=== PATIENT | female | born 1930 | race Caucasian/White ===

== ENCOUNTER 2018-01-23 14:21 | Inpatient (IN) | payer MEDICARE, MEDICAID ==
[2018-01-23] MEDS ORDERED: cefTRIAXone 1,000 MG in Sodium Chloride 0.9% 50 ML IV SCH (14:45)
[2018-01-23] MEDS: cefTRIAXone 1,000 MG VIAL IV SCH (16:23)
[2018-01-23] MEDS: Sodium Chloride 0.9% 10 ML Syringe FLUSH PRN ×2 (16:24→19:17)
[2018-01-23] MEDS ORDERED: Albuterol/Ipratropium 3.0-0.5 MG/3 ML Neb Soln INH PRN (17:29)
[2018-01-23] MEDS ORDERED: Bisacodyl 10 MG Supp RECTAL PRN (17:29)
[2018-01-23] MEDS ORDERED: Azithromycin 500 MG in Sodium Chloride 0.9% 250 ML IV SCH (18:00)
[2018-01-23] MEDS: Albuterol/Ipratropium 3.0-0.5 MG/3 ML Neb Soln INH SCH (20:37)
[2018-01-23] MEDS: Melatonin 3 MG Tab PO SCH (20:37)
[2018-01-24] MEDS: Albuterol/Ipratropium 3.0-0.5 MG/3 ML Neb Soln INH SCH ×3 (07:06→20:00)
[2018-01-24] MEDS: Citalopram 10 MG Tab PO SCH (09:06)
--- NOTE | 2018-01-24 13:41 | PN ---
DATE SEEN: 01/24/2018 SUBJECTIVE: Litzy Grullon is an 87-year-old female, in acute respiratory distress, evidence of bilateral pneumonia. Better today. Supplemental O2, still required. Blood cultures were negative. Laboratory studies reviewed. OBJECTIVE: VITAL SIGNS: 36.6, 72, 103/61, respirations 28, and O2 saturation 94% on 1 L. GENERAL: Soft spoken. Conversation limited. NECK: Benign. Thyroid small. CHEST: Better air exchange throughout all lung champion. HEART: Distant heart sounds. Ectopy present. ABDOMEN: Benign. LABORATORY DATA: Blood cultures negative. ASSESSMENT: Bilateral pneumonia. PLAN: Continue IV azithromycin, IV Rocephin, complementary care and well being. Expect a short-term hospital stay. /[id number] VIVEK/SHAWNA
--- NOTE | 2018-01-24 13:41 | HP ---
ADMISSION DATE: 01/23/2018 REASON FOR VISIT: Acute respiratory difficulty, complicated cough, low-grade fever. HISTORY OF PRESENT ILLNESS: Litzy Grullon is a delightful 87-year-old female, who resides at [facility] in [place], [place]. She presented today, was seen by Rocio Peralta at [facility]. She presents with 3-day history of complicated cough, increasing respiratory difficulty, low-grade fever, reduced oxygen level, and lethargy. History of recurrent pneumonias in the past. She was seen in the clinic, respiratory distress was present. Radiographs were not performed, but given situation and circumstances, admission to the hospital is indicated. DAILY MEDICATIONS: Please see med recon list. PAST MEDICAL HISTORY: Significant for multiple surgical procedures including previous hysterectomy, appendectomy, cholecystectomy, bilateral oophorectomy, and previous paul hole for intracranial bleed. Chronic illnesses include reactive airway disease with COPD, mood disorder, and chronic constipation. SOCIAL HISTORY: Resident at [facility], been a long-term resident. Former smoker, quit remotely. Nil alcohol consumption. No illicit drug use. FAMILY HISTORY: Not obtainable. REVIEW OF SYSTEMS: Please see HPI, limited history otherwise. PHYSICAL EXAMINATION: VITAL SIGNS: Stable. Temperature 37.1, pulse 76, blood pressure 110/60, respiratory rate 22, saturation 92% on 2 L. GENERAL: Elderly, cooperative, conversant, very soft spoken, hard of hearing. Funduscopic benign. Conjunctivae clear. Bright tympanic membranes. Clear nasal discharge. Mouth and oropharynx clear. Tongue midline. Dry mouth. A paul hole right frontoparietal area present. NECK: Benign. Thyroid is small. CHEST: Diffuse wheezing, coarse rhonchi at both bases. HEART: Distant heart sounds with occasional ectopy. ABDOMEN: Benign. No hepatosplenomegaly. Well-healed surgical scars. GENITOURINARY: Deferred. RECTAL: Deferred. EXTREMITIES: Well perfused. Venous stasis changes. LABORATORY STUDIES: Pending. ASSESSMENT: Suspect pneumonia. PLAN: Antibiotic therapy, cooperative care and well-being, respiratory therapy, intervention and care as appropriate, proceed accordingly. /[id number] VIVEK/SHAWNA ATKINSON
[2018-01-24] MEDS ORDERED: Albuterol/Ipratropium 3.0-0.5 MG/3 ML Neb Soln NEB PRN (15:50)
[2018-01-24] MEDS ORDERED: Furosemide 20 MG/2 ML VIAL IVPUSH ONE (15:50)
[2018-01-24] MEDS: Sodium Chloride 0.9% 10 ML Syringe FLUSH PRN (15:51)
[2018-01-24] MEDS: cefTRIAXone 1,000 MG VIAL IV SCH (15:51)
[2018-01-24] MEDS: Melatonin 3 MG Tab PO SCH (20:00)
[2018-01-25] MEDS: Albuterol/Ipratropium 3.0-0.5 MG/3 ML Neb Soln INH SCH ×3 (07:15→20:30)
[2018-01-25] MEDS: Citalopram 10 MG Tab PO SCH (08:21)
--- NOTE | 2018-01-25 08:53 | CR ---
INDICATION: Cough, pneumonia, fever. CHEST: AP and lateral views of the chest with two lateral views were obtained 01/24/2018 and compared with 10/24/2015 and 10/20/2015. The current chest is rotated to the right. The heart size is difficult to evaluate, but appears to be grossly within normal limits. Mild enlargement cannot be excluded with the poor inspiration obtained. The aorta is tortuous and calcified in the arch area. Diminished bone density suggests the possibility of osteoporosis - correlate clinically. Heavy markings are noted at the posterior lung bases with blunting of the posterior sulci and minimally of the costophrenic angles. This appearance is similar to previous examinations and likely represents fibrosis. The possibility of recurrent bibasilar pneumonia and pleuritis, however, cannot be excluded. Somewhat heavy markings are also noted in the right mid lung field and were, for the most part, present previously, again most likely fibrotic in nature. Somewhat flattened diaphragm leaves, prominent AP diameter, and hyperaeration all suggest COPD additionally. IMPRESSION: 1. Probable pulmonary fibrosis, but cannot exclude bibasilar patchy pneumonia and pleuritis, as well as right mid lung field pneumonia. 2. ASHD, probable mild cardiomegaly. 3. COPD. 4. Osteoporosis. MTDD
[2018-01-25] MEDS: cefTRIAXone 1,000 MG VIAL IV SCH (16:52)
[2018-01-25] MEDS: Sodium Chloride 0.9% 10 ML Syringe FLUSH PRN (16:59)
[2018-01-25] MEDS: Azithromycin 500 MG in Sodium Chloride 0.9% 250 ML IV SCH (17:55)
--- NOTE | 2018-01-25 19:39 | PCM.PN ---
- General Info Date of Service: 01/25/18 - Patient Data Vitals - Most Recent: Last Vital Signs Temp 97.9 F 01/25/18 16:00 Pulse 68 01/25/18 16:00 Resp 20 01/25/18 16:00 BP 110/65 01/25/18 16:00 Pulse Ox 93 L 01/25/18 16:00 Weight - Most Recent: 79.288 kg I&O - Last 24 Hours: Intake & Output 01/25/18 01/25/18 01/25/18 06:59 14:59 22:59 Intake Total 50 Output Total 0 Balance 50 Med Orders - Current: Current Medications Albuterol/Ipratropium (Duoneb 3.0-0.5 Mg/3 Ml) 3 ml INH TIDRT [facility] Last Admin: 01/25/18 14:40 Dose: 3 ml Albuterol/Ipratropium (Duoneb 3.0-0.5 Mg/3 Ml) 3 ml NEB Q4H PRN PRN Reason: Dyspnea Bisacodyl (Dulcolax) 10 mg RECTAL DAILY PRN PRN Reason: Constipation Ceftriaxone Sodium (Rocephin) 1,000 mg IV Q24H [facility] Last Admin: 01/25/18 16:52 Dose: 1,000 mg Citalopram Hydrobromide (Celexa) 10 mg PO DAILY [facility] Last Admin: 01/25/18 08:21 Dose: 10 mg Azithromycin 500 mg/ Sodium (Chloride) 250 mls @ 250 mls/hr IV Q24H [facility] Last Admin: 01/25/18 17:55 Dose: 250 mls/hr Melatonin (Melatonin) 3 mg PO BEDTIME [facility] Last Admin: 01/24/18 20:00 Dose: 3 mg Sodium Chloride (Saline Flush) 10 ml FLUSH ASDIRECTED PRN PRN Reason: Keep Vein Open Last Admin: 01/25/18 16:59 Dose: 10 ml Discontinued Medications Albuterol/Ipratropium (Duoneb 3.0-0.5 Mg/3 Ml) 3 ml INH QID PRN PRN Reason: shortness of breath/cough Furosemide (Lasix) 20 mg IVPUSH ONETIME ONE Stop: 01/24/18 15:51 Last Admin: 01/24/18 17:28 Dose: 20 mg Azithromycin 500 mg/ Sodium (Chloride) 250 mls @ 250 mls/hr IV Q24H [facility] Last Admin: 01/23/18 17:52 Dose: 250 mls/hr Azithromycin 500 mg/ Sodium (Chloride) 250 mls @ 250 mls/hr IV Q24H [facility] Last Admin: 01/24/18 18:25 Dose: 250 mls/hr - Problem List & Annotations (1) CAP (community acquired pneumonia) SNOMED Code(s): 014041273 Code(s): J18.9 - PNEUMONIA, UNSPECIFIED ORGANISM Status: Acute Current Visit: Yes (2) COPD with acute exacerbation SNOMED Code(s): 192963838 Code(s): J44.1 - CHRONIC OBSTRUCTIVE PULMONARY DISEASE W (ACUTE) EXACERBATION Status: Acute Current Visit: Yes (3) Palliative care status SNOMED Code(s): 090436213 Code(s): Z51.5 - ENCOUNTER FOR PALLIATIVE CARE Status: Acute Current Visit: Yes (4) DNR (do not resuscitate) Status: Acute Current Visit: Yes (5) DNI (do not intubate) SNOMED Code(s): 295435232 Code(s): Z78.9 - OTHER SPECIFIED HEALTH STATUS Status: Acute Current Visit: Yes (6) Hearing impairment SNOMED Code(s): 40389387 Code(s): H91.90 - UNSPECIFIED HEARING LOSS, UNSPECIFIED EAR Status: Chronic Current Visit: Yes - Problem List Review Problem List Initiated/Reviewed/Updated: Yes - My Orders Last 24 Hours: My Active Orders 01/25/18 19:43 Vital Signs [RC] Q6H 01/25/18 19:44 Weight Daily [Height and Weight] [RC] DAILY 01/25/18 19:45 Enoxaparin [Lovenox] 30 mg SUBCUT Q24H
[2018-01-25] MEDS ORDERED: Enoxaparin 30 MG/0.3 ML Syringe SUBCUT SCH (19:45)
[2018-01-25] MEDS: Melatonin 3 MG Tab PO SCH (20:30)
[2018-01-26] MEDS: Albuterol/Ipratropium 3.0-0.5 MG/3 ML Neb Soln INH SCH ×3 (07:23→20:37)
[2018-01-26] MEDS: Citalopram 10 MG Tab PO SCH (08:15)
[2018-01-26] MEDS ORDERED: Sodium Chloride 0.9% 1,000 ML IV SCH ×4 (15:30→19:30)
--- NOTE | 2018-01-26 15:45 | PCM.PN ---
- General Info Date of Service: 01/26/18 - Patient Data Vitals - Most Recent: Last Vital Signs Temp 97.6 F 01/26/18 14:00 Pulse 73 01/26/18 14:18 Resp 20 01/26/18 14:00 BP 118/74 01/26/18 14:00 Pulse Ox 94 L 01/26/18 14:18 Weight - Most Recent: 80.853 kg [place] Results Last 24 Hours: Microbiology 01/23/18 15:40 Aerobic Blood Culture - Preliminary Blood - Venous NO GROWTH AFTER 3 DAYS Anaerobic Blood Culture - Preliminary NO GROWTH AFTER 3 DAYS Med Orders - Current: Current Medications Albuterol/Ipratropium (Duoneb 3.0-0.5 Mg/3 Ml) 3 ml INH TIDRT [facility] Last Admin: 01/26/18 14:16 Dose: 3 ml Albuterol/Ipratropium (Duoneb 3.0-0.5 Mg/3 Ml) 3 ml NEB Q4H PRN PRN Reason: Dyspnea Bisacodyl (Dulcolax) 10 mg RECTAL DAILY PRN PRN Reason: Constipation Ceftriaxone Sodium (Rocephin) 1,000 mg IV Q24H [facility] Last Admin: 01/25/18 16:52 Dose: 1,000 mg Citalopram Hydrobromide (Celexa) 10 mg PO DAILY [facility] Last Admin: 01/26/18 08:15 Dose: 10 mg Azithromycin 500 mg/ Sodium (Chloride) 250 mls @ 250 mls/hr IV Q24H [facility] Last Admin: 01/25/18 17:55 Dose: 250 mls/hr Sodium Chloride (Normal Saline) 1,000 mls @ 125 mls/hr IV ASDIRECTED [facility]ONATHAN Sodium Chloride (Normal Saline) 1,000 mls @ 250 mls/hr IV ASDIRECTED [facility] Stop: 01/27/18 19:30 Melatonin (Melatonin) 3 mg PO BEDTIME [facility] Last Admin: 01/25/18 20:30 Dose: 3 mg Sodium Chloride (Saline Flush) 10 ml FLUSH ASDIRECTED PRN PRN Reason: Keep Vein Open Last Admin: 01/25/18 16:59 Dose: 10 ml Discontinued Medications Albuterol/Ipratropium (Duoneb 3.0-0.5 Mg/3 Ml) 3 ml INH QID PRN PRN Reason: shortness of breath/cough Enoxaparin Sodium (Lovenox) 30 mg SUBCUT Q24H [facility] Furosemide (Lasix) 20 mg IVPUSH ONETIME ONE Stop: 01/24/18 15:51 Last Admin: 01/24/18 17:28 Dose: 20 mg Azithromycin 500 mg/ Sodium (Chloride) 250 mls @ 250 mls/hr IV Q24H [facility] Last Admin: 01/23/18 17:52 Dose: 250 mls/hr Azithromycin 500 mg/ Sodium (Chloride) 250 mls @ 250 mls/hr IV Q24H [facility] Last Admin: 01/24/18 18:25 Dose: 250 mls/hr Sodium Chloride (Normal Saline) 1,000 mls @ 250 mls/hr IV ASDIRECTED [facility] Stop: 01/26/18 19:30 - Problem List & Annotations (1) CAP (community acquired pneumonia) SNOMED Code(s): 428906212 Code(s): J18.9 - PNEUMONIA, UNSPECIFIED ORGANISM Status: Acute Current Visit: Yes (2) COPD with acute exacerbation SNOMED Code(s): 941858438 Code(s): J44.1 - CHRONIC OBSTRUCTIVE PULMONARY DISEASE W (ACUTE) EXACERBATION Status: Acute Current Visit: Yes (3) Palliative care status SNOMED Code(s): 756714245 Code(s): Z51.5 - ENCOUNTER FOR PALLIATIVE CARE Status: Acute Current Visit: Yes (4) DNR (do not resuscitate) Status: Acute Current Visit: Yes (5) DNI (do not intubate) SNOMED Code(s): 236794502 Code(s): Z78.9 - OTHER SPECIFIED HEALTH STATUS Status: Acute Current Visit: Yes (6) Hearing impairment SNOMED Code(s): 44902351 Code(s): H91.90 - UNSPECIFIED HEARING LOSS, UNSPECIFIED EAR Status: Chronic Current Visit: Yes - My Orders Last 24 Hours: My Active Orders 01/25/18 19:43 Vital Signs [RC] 02,08,14,20 01/25/18 19:44 Weight Daily [Height and Weight] [RC] DAILY 01/26/18 08:44 SCD [Sequential Compression Device] [OM.PC] Routine 01/26/18 15:30 Sodium Chloride 0.9% [Normal Saline] 1,000 ml IV ASDIRECTED 01/26/18 19:30 Sodium Chloride 0.9% [Normal Saline] 1,000 ml IV ASDIRECTED
[2018-01-26] MEDS: cefTRIAXone 1,000 MG VIAL IV SCH (15:49)
[2018-01-26] MEDS: Azithromycin 500 MG in Sodium Chloride 0.9% 250 ML IV SCH (18:01)
[2018-01-26] MEDS: Sodium Chloride 0.9% 10 ML Syringe FLUSH PRN (20:00)
[2018-01-26] MEDS: Melatonin 3 MG Tab PO SCH (20:36)
[2018-01-26] MEDS: Sodium Chloride 0.9% 1,000 ML IV SCH (23:01)
[2018-01-27] MEDS: Sodium Chloride 0.9% 1,000 ML IV SCH (06:18)
[2018-01-27] MEDS: Albuterol/Ipratropium 3.0-0.5 MG/3 ML Neb Soln INH SCH ×3 (07:09→20:14)
[2018-01-27] MEDS: Citalopram 10 MG Tab PO SCH (08:40)
--- NOTE | 2018-01-27 09:07 | PCM.PN ---
- General Info Date of Service: 01/27/18 - Patient Data Vitals - Most Recent: Last Vital Signs Temp 97.9 F 01/27/18 07:54 Pulse 74 01/27/18 07:54 Resp 22 H 01/27/18 07:54 BP 125/65 01/27/18 07:54 Pulse Ox 93 L 01/27/18 07:54 Weight - Most Recent: 82.554 kg I&O - Last 24 Hours: Intake & Output 01/26/18 01/27/18 01/27/18 22:59 06:59 14:59 Intake Total 1101 1233 Balance 1101 1233 Arnulfo Results Last 24 Hours: Microbiology 01/23/18 15:55 Aerobic Blood Culture - Preliminary Blood - Venous - Lab Draw NO GROWTH AFTER 4 DAYS Anaerobic Blood Culture - Preliminary NO GROWTH AFTER 4 DAYS 01/23/18 15:40 Aerobic Blood Culture - Preliminary Blood - Venous NO GROWTH AFTER 4 DAYS Anaerobic Blood Culture - Preliminary NO GROWTH AFTER 4 DAYS Med Orders - Current: Current Medications Albuterol/Ipratropium (Duoneb 3.0-0.5 Mg/3 Ml) 3 ml INH TIDRT [facility] Last Admin: 01/27/18 07:09 Dose: 3 ml Albuterol/Ipratropium (Duoneb 3.0-0.5 Mg/3 Ml) 3 ml NEB Q4H PRN PRN Reason: Dyspnea Bisacodyl (Dulcolax) 10 mg RECTAL DAILY PRN PRN Reason: Constipation Ceftriaxone Sodium (Rocephin) 1,000 mg IV Q24H [facility] Last Admin: 01/26/18 15:49 Dose: 1,000 mg Citalopram Hydrobromide (Celexa) 10 mg PO DAILY [facility] Last Admin: 01/27/18 08:40 Dose: 10 mg Azithromycin 500 mg/ Sodium (Chloride) 250 mls @ 250 mls/hr IV Q24H [facility] Last Admin: 01/26/18 18:01 Dose: 250 mls/hr Sodium Chloride (Normal Saline) 1,000 mls @ 125 mls/hr IV ASDIRECTED [facility] Last Admin: 01/27/18 06:18 Dose: 125 mls/hr Melatonin (Melatonin) 3 mg PO BEDTIME [facility] Last Admin: 01/26/18 20:36 Dose: 3 mg Sodium Chloride (Saline Flush) 10 ml FLUSH ASDIRECTED PRN PRN Reason: Keep Vein Open Last Admin: 01/26/18 20:00 Dose: 10 ml Discontinued Medications Albuterol/Ipratropium (Duoneb 3.0-0.5 Mg/3 Ml) 3 ml INH QID PRN PRN Reason: shortness of breath/cough Enoxaparin Sodium (Lovenox) 30 mg SUBCUT Q24H [facility] Furosemide (Lasix) 20 mg IVPUSH ONETIME ONE Stop: 01/24/18 15:51 Last Admin: 01/24/18 17:28 Dose: 20 mg Azithromycin 500 mg/ Sodium (Chloride) 250 mls @ 250 mls/hr IV Q24H [facility] Last Admin: 01/23/18 17:52 Dose: 250 mls/hr Azithromycin 500 mg/ Sodium (Chloride) 250 mls @ 250 mls/hr IV Q24H [facility] Last Admin: 01/24/18 18:25 Dose: 250 mls/hr Sodium Chloride (Normal Saline) 1,000 mls @ 250 mls/hr IV ASDIRECTED [facility] Stop: 01/26/18 19:30 Sodium Chloride (Normal Saline) 1,000 mls @ 125 mls/hr IV ASDIRECTED [facility]ON[facility] Sodium Chloride (Normal Saline) 1,000 mls @ 250 mls/hr IV ASDIRECTED [facility] Stop: 01/27/18 19:30 Sodium Chloride (Normal Saline) 1,000 mls @ 250 mls/hr IV ASDIRECTED [facility] Stop: 01/26/18 19:29 Last Admin: 01/26/18 16:04 Dose: 250 mls/hr - Problem List & Annotations (1) CAP (community acquired pneumonia) SNOMED Code(s): 122792452 Code(s): J18.9 - PNEUMONIA, UNSPECIFIED ORGANISM Status: Acute Current Visit: Yes (2) COPD with acute exacerbation SNOMED Code(s): 592359937 Code(s): J44.1 - CHRONIC OBSTRUCTIVE PULMONARY DISEASE W (ACUTE) EXACERBATION Status: Acute Current Visit: Yes (3) Palliative care status SNOMED Code(s): 447267781 Code(s): Z51.5 - ENCOUNTER FOR PALLIATIVE CARE Status: Acute Current Visit: Yes (4) DNR (do not resuscitate) Status: Acute Current Visit: Yes (5) DNI (do not intubate) SNOMED Code(s): 371998080 Code(s): Z78.9 - OTHER SPECIFIED HEALTH STATUS Status: Acute Current Visit: Yes (6) Hearing impairment SNOMED Code(s): 12751272 Code(s): H91.90 - UNSPECIFIED HEARING LOSS, UNSPECIFIED EAR Status: Chronic Current Visit: Yes - My Orders Last 24 Hours: My Active Orders 01/26/18 08:44 SCD [Sequential Compression Device] [OM.PC] Routine 01/26/18 19:30 Sodium Chloride 0.9% [Normal Saline] 1,000 ml IV ASDIRECTED
[2018-01-27] MEDS: cefTRIAXone 1,000 MG VIAL IV SCH (16:57)
[2018-01-27] MEDS: Azithromycin 500 MG in Sodium Chloride 0.9% 250 ML IV SCH (17:43)
[2018-01-27] MEDS ORDERED: Azithromycin 250 MG Tab PO ONE (18:22)
[2018-01-27] MEDS: Melatonin 3 MG Tab PO SCH (20:14)
[2018-01-28] MEDS ORDERED: Furosemide 40 MG Tab PO ONE (06:45)
[2018-01-28] MEDS: Albuterol/Ipratropium 3.0-0.5 MG/3 ML Neb Soln INH SCH (07:08)
[2018-01-28] MEDS: Citalopram 10 MG Tab PO SCH (09:11)
--- NOTE | 2018-01-28 11:52 | PCM.DCSUM1 ---
Discharge Summary - Discharge Data Discharge Date: 01/28/18 Discharge Disposition: [facility] Condition: Fair - Discharge Diagnosis/Problem(s) (1) CAP (community acquired pneumonia) SNOMED Code(s): 597328358 ICD Code: J18.9 - PNEUMONIA, UNSPECIFIED ORGANISM Status: Acute Current Visit: Yes (2) COPD with acute exacerbation SNOMED Code(s): 462415206 ICD Code: J44.1 - CHRONIC OBSTRUCTIVE PULMONARY DISEASE W (ACUTE) EXACERBATION Status: Acute Current Visit: Yes (3) Palliative care status SNOMED Code(s): 958502700 ICD Code: Z51.5 - ENCOUNTER FOR PALLIATIVE CARE Status: Acute Current Visit: Yes (4) DNR (do not resuscitate) Status: Acute Current Visit: Yes (5) DNI (do not intubate) SNOMED Code(s): 256482552 ICD Code: Z78.9 - OTHER SPECIFIED HEALTH STATUS Status: Acute Current Visit: Yes (6) Hearing impairment SNOMED Code(s): 88710331 ICD Code: H91.90 - UNSPECIFIED HEARING LOSS, UNSPECIFIED EAR Status: Chronic Current Visit: Yes - Patient Instructions Diet: Usual Diet as Tolerated Activity: Cough & Deep Breathe Showering/Bathing: May Shower Notify Provider of: Fever, Nausea and/or Vomiting - Discharge Plan Home Medications: Home Meds Albuterol/Ipratropium [DuoNeb 3.0-0.5 MG/3 ML] 3 ml INH QID PRN 09/28/15 [ History] Cholecalciferol (Vitamin D3) [Vitamin D3] 2,000 unit PO DAILY 09/28/15 [History] Melatonin/Pyridoxine HCl (B6) [Melatonin 3 mg Tablet] 3 mg PO BEDTIME 09/28/15 [ History] Acetaminophen [Tylenol] 650 mg PO Q4H PRN 06/20/16 [History] Carbamide Peroxide [Ear Wax Drops] 5 drop EARBOTH BID PRN 06/20/16 [History] Albuterol [Proventil Neb Soln] 2.5 mg IH Q4H PRN 01/23/18 [History] Albuterol/Ipratropium [DuoNeb 3.0-0.5 MG/3 ML] 3 ml IH TID 01/23/18 [History] Alum Hydrox/Mag Hydrox/Simeth [Maalox Advanced] 30 ml PO Q6H PRN 01/23/18 [ History] Benzonatate [Tessalon Perle] 100 mg PO QID PRN 01/23/18 [History] Bisacodyl [Dulcolax] 10 mg RECTAL DAILY PRN 01/23/18 [History] Citalopram Hydrobromide [Celexa] 10 mg PO DAILY 01/23/18 [History] Dextran 70/Hypromellose [Artificial Tears] 1 drop EYEBOTH DAILY 01/23/18 [ History] Dextran 70/Hypromellose [Artificial Tears] 1 drop EYEBOTH Q4H PRN 01/23/18 [ History] Dextromethorphan/guaiFENesin [Robitussin DM] 10 ml PO Q4H PRN 01/23/18 [History] Fluticasone/Vilanterol [Breo Ellipta 100-25 MCG Inhalation Kit] 1 puff INH DAILY 01/23/18 [History] Furosemide [Lasix] 40 mg PO DAILY 01/23/18 [History] Loperamide [Imodium] 2 mg PO ASDIRECTED PRN 01/23/18 [History] Mag Hydrox/Al Hydrox/Simeth [Mi Acid Suspension] 15 ml PO Q4H PRN 01/23/18 [ History] Trolamine Salicylate/Aloe Vera [Aspercreme 10%] 1 applic TOP QID PRN 01/23/18 [ History] Witch Indira [Tucks] 1 pad TOP Q4H PRN 01/23/18 [History] Patient Handouts: Chronic Obstructive Pulmonary Disease, Uiwp-at-[facility]er, Fall Prevention in Hospitals, Adult, Community-Acquired Pneumonia, Adult, Venous Thromboembolism Prevention - Patient Data Vitals - Most Recent: Last Vital Signs Temp 98 F 01/28/18 02:00 Pulse 78 01/28/18 07:20 Resp 18 01/28/18 02:00 BP 106/69 01/28/18 02:00 Pulse Ox 92 L 01/28/18 07:20 Weight - Most Recent: 84.187 kg I&O - Last 24 hours: Intake & Output 01/27/18 01/28/18 01/28/18 22:59 06:59 14:59 Intake Total 50 Balance 50 Lab Results - Last 24 hrs: Laboratory Results - last 24 hr 01/28/18 01/28/18 Range/Units 06:55 06:55 WBC 4.5 (4.5-12.0) X10-3/uL RBC 3.72 (3.23-5.20) x10(6)uL Hgb 10.5 L (11.5-15.5) g/dL Hct 32.6 (30.0-51.3) % MCV 87.8 (80-96) fL MCH 28.3 (27.7-33.6) pg MCHC 32.2 (32.2-35.4) g/dL RDW 15.3 (11.5-15.5) % Plt Count 107 L (125-369) X10(3)uL Sodium 144 (135-145) mmol/L Potassium 3.5 (3.5-5.3) mmol/L Chloride 110 D (100-110) mmol/L Carbon Dioxide 30 (21-32) mmol/L BUN 11 (7-18) mg/dL Creatinine 0.9 (0.55-1.02) mg/dL Est Cr Clr Drug Dosing 46.10 mL/min Estimated GFR (MDRD) 60 (>60) BUN/Creatinine Ratio 12.2 (9-20) Glucose 81 (80-116) mg/dL Calcium 8.2 L (8.6-10.2) mg/dL ALFREDO Results - Last 24 hrs: Microbiology 01/23/18 15:55 Aerobic Blood Culture - Preliminary Blood - Venous - Lab Draw NO GROWTH AFTER 4 DAYS Anaerobic Blood Culture - Preliminary NO GROWTH AFTER 4 DAYS 01/23/18 15:40 Aerobic Blood Culture - Preliminary Blood - Venous NO GROWTH AFTER 4 DAYS Anaerobic Blood Culture - Preliminary NO GROWTH AFTER 4 DAYS Med Orders - Current: Current Medications Albuterol/Ipratropium (Duoneb 3.0-0.5 Mg/3 Ml) 3 ml INH TIDRT [facility] Last Admin: 01/28/18 07:08 Dose: 3 ml Bisacodyl (Dulcolax) 10 mg RECTAL DAILY PRN PRN Reason: Constipation Citalopram Hydrobromide (Celexa) 10 mg PO DAILY [facility] Last Admin: 01/28/18 09:11 Dose: 10 mg Melatonin (Melatonin) 3 mg PO BEDTIME [facility] Last Admin: 01/27/18 20:14 Dose: 3 mg Discontinued Medications Albuterol/Ipratropium (Duoneb 3.0-0.5 Mg/3 Ml) 3 ml INH QID PRN PRN Reason: shortness of breath/cough Albuterol/Ipratropium (Duoneb 3.0-0.5 Mg/3 Ml) 3 ml NEB Q4H PRN PRN Reason: Dyspnea Azithromycin (Zithromax) 250 mg PO DAILY@1700 JONATHAN Azithromycin (Zithromax) 250 mg PO ONETIME ONE Stop: 01/27/18 18:23 Last Admin: 01/27/18 18:43 Dose: 250 mg Ceftriaxone Sodium (Rocephin) 1,000 mg IV Q24H [facility] Last Admin: 01/27/18 16:57 Dose: 1,000 mg Enoxaparin Sodium (Lovenox) 30 mg SUBCUT Q24H [facility] Furosemide (Lasix) 20 mg IVPUSH ONETIME ONE Stop: 01/24/18 15:51 Last Admin: 01/24/18 17:28 Dose: 20 mg Furosemide (Lasix) 40 mg PO ONETIME ONE Stop: 01/28/18 06:46 Last Admin: 01/28/18 06:56 Dose: 40 mg Azithromycin 500 mg/ Sodium (Chloride) 250 mls @ 250 mls/hr IV Q24H [facility] Last Admin: 01/23/18 17:52 Dose: 250 mls/hr Azithromycin 500 mg/ Sodium (Chloride) 250 mls @ 250 mls/hr IV Q24H [facility] Last Admin: 01/24/18 18:25 Dose: 250 mls/hr Azithromycin 500 mg/ Sodium (Chloride) 250 mls @ 250 mls/hr IV Q24H [facility] Stop: 01/27/18 19:30 Last Admin: 01/27/18 17:43 Dose: 250 mls/hr Sodium Chloride (Normal Saline) 1,000 mls @ 250 mls/hr IV ASDIRECTED [facility] Stop: 01/26/18 19:30 Sodium Chloride (Normal Saline) 1,000 mls @ 125 mls/hr IV ASDIRECTED [facility] Sodium Chloride (Normal Saline) 1,000 mls @ 250 mls/hr IV ASDIRECTED [facility] Stop: 01/27/18 19:30 Sodium Chloride (Normal Saline) 1,000 mls @ 250 mls/hr IV ASDIRECTED [facility] Stop: 01/26/18 19:29 Last Admin: 01/26/18 16:04 Dose: 250 mls/hr Sodium Chloride (Normal Saline) 1,000 mls @ 125 mls/hr IV ASDIRECTED [facility] Last Admin: 01/27/18 06:18 Dose: 125 mls/hr Sodium Chloride (Saline Flush) 10 ml FLUSH ASDIRECTED PRN PRN Reason: Keep Vein Open Last Admin: 01/26/18 20:00 Dose: 10 ml
[2018-01-28 12:18] VITALS: BP 98/66
[2018-01-28] MEDS ORDERED: Azithromycin 250 MG Tab PO SCH (17:00)
== END 2018-01-28 11:50 | DRG 190 ==
LOC: FB.MS 14:22
PROVIDERS: ADMIT Family Medicine; ATTEND Family Medicine
DX: J44.0 Chronic obstructive pulmonary disease with (acute) lower respiratory infection (principal); J18.9 Pneumonia, unspecified organism; J44.1 Chronic obstructive pulmonary disease with (acute) exacerbation; Z51.5 Encounter for palliative care; Z66 Do not resuscitate; H91.90 Unspecified hearing loss, unspecified ear; K59.09 Other constipation; F39 Unspecified mood [affective] disorder; Z87.01 Personal history of pneumonia (recurrent); Z87.891 Personal history of nicotine dependence
CPT/HCPCS: 36415; 71046; 80048; 80053; 85025; 85027; 87040; 94150; 94640; A9270-GY; J0456; J0696; J1940; J7040; J7050; J7620